=== PATIENT | female | born 1995 | race African-American/Black ===

== ENCOUNTER 2017-02-09 11:12 | Emergency (ER) | payer OTHER ==
[~2017-02-09] VITALS: Ht 157.5 cm; Wt 56.7 kg
[2017-02-09 13:41] LABS: INR 1.1
[2017-02-09 13:46] LABS: BASO # 0.1 K/mm3 (0.0-0.2); EOS % 0.7 % (0.0-3.0); LARGE UNSTAINED CELL # 0.1 K/mm3 (0.0-0.4); LARGE UNSTAINED CELL % 2.3 % (0.0-4.0); LYMPH # 2.2 K/mm3 (1.5-6.5); LYMPH % 34.7 % (24.0-44.0); MEAN CORPUSCULAR HEMOGLOBIN 18.3 pg (27.0-33.0); MEAN CORPUSCULAR HGB CONC 28.1 g/dl (32.0-36.5); MEAN CORPUSCULAR VOLUME 65.4 fl (80.0-96.0); MONO # 0.3 K/mm3 (0.0-0.8); MONO % 4.8 % (0.0-5.0); NEUTROPHILS # 3.5 K/mm3 (1.8-7.7); NEUTROPHILS % 56.5 % (36.0-66.0); PLATELET COUNT, AUTOMATED 327 k/mm3 (150-450); RED CELL DISTRIBUTION WIDTH 17.7 % (11.5-14.5); WHITE BLOOD COUNT 6.2 K/mm3 (4.0-10.0)
[2017-02-09 13:51] LABS: ALBUMIN/GLOBULIN RATIO 0.77 (1.00-1.93); ALKALINE PHOSPHATASE 87 U/L (45-117); ALT/SGPT 34 U/L (12-78); ANION GAP 6 MEQ/L (8-16); AST/SGOT 43 U/L (15-37); BILIRUBIN,DIRECT < 0.1 MG/DL (0.0-0.2); BILIRUBIN,TOTAL 0.4 MG/DL (0.2-1.0); BLOOD UREA NITROGEN 14 MG/DL (7-18); CALCIUM LEVEL 9.5 MG/DL (8.5-10.1); CARBON DIOXIDE LEVEL 29 MEQ/L (21-32); CHLORIDE LEVEL 103 MEQ/L (98-107); CREATININE FOR GFR 0.61 MG/DL (0.55-1.02); GLUCOSE, FASTING 78 MG/DL (70-105); POTASSIUM SERUM 4.3 MEQ/L (3.5-5.1); SODIUM LEVEL 138 MEQ/L (136-145); TOTAL PROTEIN 9.2 GM/DL (6.4-8.2)
[2017-02-09 14:05] LABS: ADD MORPHOLOGY? YES
[2017-02-09 14:11] LABS: ANISOCYTOSIS 1+; HYPOCHROMASIA 3+; MICROCYTOSIS 3+
[2017-02-09 14:45] VITALS: BP 117/59
== END 2017-02-09 14:57 | disposition home or self-care (01) ==
LOC: M ED 13:00
DX: K92.2 Gastrointestinal hemorrhage, unspecified (principal); F17.210 Nicotine dependence, cigarettes, uncomplicated; Z88.8 Allergy status to other drugs, medicaments and biological substances

== ENCOUNTER 2017-02-10 20:23 | Emergency (ER) | payer OTHER ==
[~2017-02-10] VITALS: Ht 157.5 cm; Wt 54.4 kg
[2017-02-10] MEDS ORDERED: GASTROGRAFIN SOLUTION 30ML (Q9963) As Ordered ONE (23:18)
[2017-02-10] MEDS ORDERED: GASTROGRAFIN SOLUTION 30ML (Q9963) PO ONE ×2 (23:30)
[2017-02-10 23:31] LABS: DIFF SLIDE NUMBER 367; MEAN CORPUSCULAR HEMOGLOBIN 18.1 pg (27.0-33.0); MEAN CORPUSCULAR HGB CONC 27.3 g/dl (32.0-36.5); MEAN CORPUSCULAR VOLUME 66.1 fl (80.0-96.0); PLATELET COUNT, AUTOMATED 282 k/mm3 (150-450); RED CELL DISTRIBUTION WIDTH 17.8 % (11.5-14.5); WHITE BLOOD COUNT 4.8 K/mm3 (4.0-10.0)
[2017-02-10 23:38] LABS: CONTROL LINE HCG INT CTR LINE PRESENT; INR 1.1
[2017-02-10 23:44] LABS: ALBUMIN 3.6 GM/DL (3.2-5.2); ALBUMIN/GLOBULIN RATIO 0.69 (1.00-1.93); ALKALINE PHOSPHATASE 84 U/L (45-117); ALT/SGPT 31 U/L (12-78); ANION GAP 6 MEQ/L (8-16); AST/SGOT 27 U/L (15-37); BILIRUBIN,DIRECT < 0.1 MG/DL (0.0-0.2); BILIRUBIN,TOTAL 0.2 MG/DL (0.2-1.0); BLOOD UREA NITROGEN 12 MG/DL (7-18); CALCIUM LEVEL 9.2 MG/DL (8.5-10.1); CARBON DIOXIDE LEVEL 26 MEQ/L (21-32); CHLORIDE LEVEL 104 MEQ/L (98-107); CREATININE FOR GFR 0.58 MG/DL (0.55-1.02); GLUCOSE, FASTING 82 MG/DL (70-105); POTASSIUM SERUM 3.8 MEQ/L (3.5-5.1); SODIUM LEVEL 136 MEQ/L (136-145); TOTAL PROTEIN 8.8 GM/DL (6.4-8.2)
[2017-02-10 23:53] LABS: BASOPHILS 1 % (0-4); EOSINOPHILS 1 % (0-5)
[2017-02-10 23:55] LABS: ANISOCYTOSIS 1+; HYPOCHROMASIA 3+; MICROCYTOSIS 3+; OVALOCYTES 1+
[2017-02-11] MEDS ORDERED: ISOVUE-370 76% 100ML VIAL (Q9967) As Ordered ONE (00:40)
[2017-02-11] MEDS ORDERED: diphenhydrAMINE INJ 50MG/ML VIAL (J1200) IV ONE (01:00)
[2017-02-11] MEDS ORDERED: ONDANSETRON 4MG/2ML VIAL (J2405) IV ONE (01:00)
[2017-02-11] MEDS ORDERED: methylPREDNISolone INJ 125 MG/2 ML VIAL (J2930) IV ONE (01:00)
--- NOTE | 2017-02-11 01:10 | REPUSA ---
CLINICAL HISTORY: Abdominal pain. TECHNIQUE: Multiple axial, sagittal and coronal CT images were obtained through the abdomen and pelvi s after administration of oral and intravenous contrast material. COMMENTS: The liver is mildly enlarged with decreased attenuation without mass or defect. There is no intra or extrahepatic biliary ductal dilatation. The spleen is normal. The gallbladder is within normal limits . The pancreas is of normal contour and attenuation characteristics. There is no evidence of adrenal mass. Both kidneys demonstrate prompt and equal nephrograms. The kidneys are normal in size, shape and conf iguration. There is no evidence of renal or ureteral mass. No renal or ureteral calculi are identifie d. There is no hydroureter or hydronephrosis. No evidence for appendicitis. There is no bowel wall thickening. No evidence for small or large jessie l obstruction. There is no evidence of abdominal ascites or lymphadenopathy. There is no evidence of intrinsic or extrinsic bladder mass. Thickened bladder. There is small amount of free fluid in the pelvis. Images of the lung bases show no evidence of pleural or parenchymal mass. There are no pleural effusi ons. The bony structures are free of lytic or blastic lesions. IMPRESSION: Thickened bladder. Underdistention versus mild cystitis. Small amount of free fluid in the pelvis. Thank you for your kind referral of this patient.
[2017-02-11 02:56] VITALS: BP 112/54
== END 2017-02-11 02:57 | disposition home or self-care (01) ==
LOC: M ED 21:25
DX: K92.2 Gastrointestinal hemorrhage, unspecified (principal); F17.210 Nicotine dependence, cigarettes, uncomplicated; Z88.8 Allergy status to other drugs, medicaments and biological substances
CPT/HCPCS: 36415; 74177; 80048; 80076; 83690; 84703; 85025; 85610; 85730; 86850; 86900; 86901; 96374; 96375; 99283; J1200; J2405; J2930; Q9963; Q9967

== ENCOUNTER → 2017-04-30 | Day surgery (SDC) | payer OTHER ==
[~2017-04-30] VITALS: Ht 160 cm; Wt 54.4 kg
[~2017-04-30] MED LIST: BUPIVACAINE HCL 0.5% 30 ML VIAL As Ordered ONE; GLYCOPYRROLATE INJ 0.2 MG/ML 2 ML VIAL As Ordered ONE; LIDOCAINE 2% INJ 100 MG/5 ML SDV (FOR ANES.) As Ordered ONE; LR 1,000 ML IV ONE; LR 1,000 ML IV SCH; MIDAZOLAM INJ 2 MG/2 ML VIAL (J2250) As Ordered ONE; NEOSTIGMINE 1MG/ML 5 ML SYRINGE (J2710) As Ordered ONE; ONDANSETRON 4MG/2ML VIAL (J2405) As Ordered ONE; ONDANSETRON 4MG/2ML VIAL (J2405) IV PRN; PERCOCET 5MG/325MG TAB As Ordered ONE; PERCOCET 5MG/325MG TAB PO ONE; PROPOFOL 200 MG/20 ML VIAL As Ordered ONE; ROCURONIUM BROMIDE 50 MG/5 ML VIAL/SYRINGE As Ordered ONE; TYLE1TAB5 PO; dexameTHASONE 4 MG/ML 1ML VIAL (J1100) As Ordered ONE; fentaNYL 100 MCG/2 ML INJECTION (J3010) As Ordered ONE
[2017-04-30 08:45] LABS: CONTROL LINE UCG INT CTR LINE PRESENT
[2017-04-30] MEDS: fentaNYL 100 MCG/2 ML INJECTION (J3010) IV PRN ×3 (10:38→11:16)
[2017-04-30 12:40] VITALS: BP 132/87
--- NOTE | 2017-05-01 08:29 | RO ---
DATE OF PROCEDURE: 04/30/2017 PREOPERATIVE DIAGNOSIS: Chronic tonsillitis. POSTOPERATIVE DIAGNOSIS: Chronic tonsillitis. PROCEDURE: Tonsillectomy. SURGEON: Louis Singh MD [employer]GE[employer]: ANESTHESIA: INDICATIONS: This is a 21-year-old with a history of recurrent tonsillitis, pharyngitis. DATE OF PROCEDURE: Satisfactory general endotracheal anesthesia was administered. The patient placed in Trendelenburg positions. Rj-Alf gag inserted. First, the right tonsil was grasped with an Allis clamp and retracted out of its muscular fossa. Using cutting cautery, incision was made on the anterior pillar 3 mm from its edge and the capsule of the tonsil was then identified. Using a combination of cautery and blunt dissection, the tonsil was dissected medially out of its muscular fossa, working superiorly down into the space between the constrictor muscle and the tonsil capsule. The tonsil was rolled medially out of its fossa, working inferiorly and preserving the posterior pillar in its entirety. Once the tonsil was suspended only at the inferior pole, coagulation current was used to amputate tissue. No significant bleeding was encountered in this dissection. The left tonsil was removed in a similar fashion. After completing surgery, 0.5% Marcaine was injected into the surgical site and the tonsil fossa. The gag was released at 3 minutes. Reinspection showed no active bleeding. Total blood loss was 15 mL. The patient was then awakened, extubated, and sent to recovery in satisfactory condition. She will be discharged home on Motrin 800 mg, Tylenol gel caps and Hycet elixir. She was given a prescription for Keflex suspension 250 mg twice a day. She will be seen in the office in 1 week.
== END | disposition home or self-care (01) ==
LOC: M SDC 07:07
PROVIDERS: ATTEND Specialist
DX: J35.01 Chronic tonsillitis (principal); R29.898 Other symptoms and signs involving the musculoskeletal system; R06.83 Snoring; Z88.6 Allergy status to analgesic agent; Z91.041 Radiographic dye allergy status; Z87.448 Personal history of other diseases of urinary system; Z72.0 Tobacco use
CPT/HCPCS: 42826; 84703; 88302; J1100; J2250; J2405; J2710; J3010

== ENCOUNTER 2017-08-02 13:51 | Emergency (ER) | payer OTHER ==
[~2017-08-02] VITALS: Ht 160 cm; Wt 54.5 kg
[2017-08-02] MEDS ORDERED: TYLE1TAB5 PO (14:40)
[2017-08-02] MEDS ORDERED: ONDANSETRON 4MG/2ML VIAL (J2405) IV ONE (15:45)
[2017-08-02] MEDS ORDERED: MORPHINE 2 MG/ML 1ML SYRINGE IV PRN (15:45)
[2017-08-02 16:40] LABS: ADD MORPHOLOGY? YES; BASO % 0.6 % (0.0-1.0); EOS # 0.1 10^3/uL (0.0-0.50); EOS % 0.8 % (0.0-3.0); IMMATURE GRANULOCYTE % 0.3 % (0-0); LYMPH # 2.5 10^3/uL (1.5-6.5); LYMPH % 34.7 % (24.0-44.0); MEAN CORPUSCULAR HEMOGLOBIN 17.7 pg (27.0-33.0); MEAN CORPUSCULAR HGB CONC 27.9 g/dl (32.0-36.5); MEAN CORPUSCULAR VOLUME 63.5 fl (80.0-96.0); MONO # 0.5 10^3/uL (0.0-0.8); MONO % 7.1 % (0.0-5.0); NEUTROPHILS # 4.1 10^3/uL (1.8-7.7); NEUTROPHILS % 56.5 % (36.0-66.0); PLATELET COUNT, AUTOMATED 258 10^3/uL (150-450); POSITIVE MORPH POS FLAG; RED CELL DISTRIBUTION WIDTH 20.3 % (11.5-14.5); WHITE BLOOD COUNT 7.2 10^3/uL (4.0-10.0)
[2017-08-02 17:08] LABS: ALBUMIN 3.9 GM/DL (3.2-5.2); ALBUMIN/GLOBULIN RATIO 0.83 (1.00-1.93); ALKALINE PHOSPHATASE 93 U/L (45-117); ALT/SGPT 19 U/L (12-78); ANION GAP 7 MEQ/L (8-16); AST/SGOT 16 U/L (15-37); BILIRUBIN,DIRECT < 0.1 MG/DL (0.0-0.2); BILIRUBIN,TOTAL 0.3 MG/DL (0.2-1.0); BLOOD UREA NITROGEN 17 MG/DL (7-18); CALCIUM LEVEL 8.9 MG/DL (8.5-10.1); CARBON DIOXIDE LEVEL 25 MEQ/L (21-32); CHLORIDE LEVEL 105 MEQ/L (98-107); CREATININE FOR GFR 0.53 MG/DL (0.55-1.02); GLUCOSE, FASTING 80 MG/DL (70-105); POTASSIUM SERUM 3.9 MEQ/L (3.5-5.1); SODIUM LEVEL 137 MEQ/L (136-145); TOTAL PROTEIN 8.6 GM/DL (6.4-8.2)
[2017-08-02 17:27] LABS: CONTROL LINE HCG INT CTR LINE PRESENT
[2017-08-02 17:28] LABS: ANISOCYTOSIS 2+; HYPOCHROMASIA 2+; MICROCYTOSIS 2+; OVALOCYTES 1+; POLYCHROMASIA 1+
--- NOTE | 2017-08-02 18:03 | REP ---
CT of the abdomen pelvis without IV or bowel contrast: Comparison is 2016. The visualized lung cardona are unremarkable. The unenhanced hepatic parenchyma, gallbladder, pancreas and spleen are unremarkable. The adrenals, kidneys and abdominal aorta are unremarkable. There is no hydronephrosis. There are no ureteral calculi. There is no bowel distension. Mesentery is unremarkable. Pelvis: The uterus and adnexa are unremarkable. The bladder and appendix are unremarkable. There is no ascites or adenopathy. Impression: Essentially negative CT study of the abdomen and pelvis. Signed by Ubaldo Salas MD 08/02/2017 05:55 P
[2017-08-02 18:20] VITALS: BP 119/68
== END 2017-08-02 18:27 | disposition home or self-care (01) ==
LOC: M ED 13:51
DX: R10.9 Unspecified abdominal pain (principal); Z72.0 Tobacco use
CPT/HCPCS: 74176; 80048; 80076; 81001; 83690; 84703; 85025; 87086; 96374; 96375; 99283; J2405

== ENCOUNTER 2017-09-19 07:28 | Emergency (ER) | payer OTHER ==
[~2017-09-19] VITALS: Ht 160 cm; Wt 54.5 kg
[~2017-09-19 07:28] MED LIST changes: -BUPIVACAINE HCL 0.5% 30 ML VIAL As Ordered ONE; -GLYCOPYRROLATE INJ 0.2 MG/ML 2 ML VIAL As Ordered ONE; -LIDOCAINE 2% INJ 100 MG/5 ML SDV (FOR ANES.) As Ordered ONE; -LR 1,000 ML IV ONE; -LR 1,000 ML IV SCH; -MIDAZOLAM INJ 2 MG/2 ML VIAL (J2250) As Ordered ONE; -NEOSTIGMINE 1MG/ML 5 ML SYRINGE (J2710) As Ordered ONE; -ONDANSETRON 4MG/2ML VIAL (J2405) As Ordered ONE; -ONDANSETRON 4MG/2ML VIAL (J2405) IV PRN; -PERCOCET 5MG/325MG TAB As Ordered ONE; -PERCOCET 5MG/325MG TAB PO ONE; -PROPOFOL 200 MG/20 ML VIAL As Ordered ONE; -ROCURONIUM BROMIDE 50 MG/5 ML VIAL/SYRINGE As Ordered ONE; -dexameTHASONE 4 MG/ML 1ML VIAL (J1100) As Ordered ONE; -fentaNYL 100 MCG/2 ML INJECTION (J3010) As Ordered ONE
[2017-09-19] MEDS ORDERED: VENTAER IN (09:07)
[2017-09-19] MEDS ORDERED: MOME50SP (09:07)
[2017-09-19] MEDS ORDERED: MUCI120T PO (09:07)
[2017-09-19 09:15] VITALS: BP 133/70
--- NOTE | 2017-09-19 18:08 | ECGEPIP ---
Stationary ECG Study [facility] - ED Test Date: 2017-09-19 Pat Name: PRAVEENA CHAND Department: Room: - Gender: F Movie Actor: vito : 1995 Requested By: NATALIIA Long PA-C Order Number: [id number] Reading MD: Félix Hussein Measurements Intervals [place] Rate: 75 P: 132 CO: 131 QRS: 149 QRSD: 88 T: 155 QT: 360 QTc: 402 Interpretive Statements SINUS RHYTHM LEFT POSTERIOR FASCICULAR BLOCK BENIGN EARLY REPOLARIZATION NO PRIORS FOR COMPARISON Electronically Signed On 09-19-2017 18:08:37 EST by Félix Hussein
== END 2017-09-19 09:16 | disposition home or self-care (01) ==
LOC: M ED 07:28
DX: J06.9 Acute upper respiratory infection, unspecified (principal); F17.210 Nicotine dependence, cigarettes, uncomplicated; Z91.041 Radiographic dye allergy status; Z88.8 Allergy status to other drugs, medicaments and biological substances

== ENCOUNTER 2017-10-08 11:34 | Emergency (ER) | payer OTHER ==
[~2017-10-08] VITALS: Ht 160 cm; Wt 54.5 kg
[2017-10-08 11:34] VITALS: BP 139/85
[~2017-10-08 11:34] MED LIST changes: +MOME50SP; +MUCI120T PO; +VENTAER IN
[2017-10-08] MEDS ORDERED: MIRA3350 PO (12:58)
[2017-10-08] MEDS ORDERED: COLA100C5 PO (12:58)
[2017-10-08] MEDS ORDERED: ANUS25SU PR (12:58)
== END 2017-10-08 13:14 | disposition home or self-care (01) ==
LOC: M ED 11:34
DX: K59.00 Constipation, unspecified (principal); K64.9 Unspecified hemorrhoids; Z88.8 Allergy status to other drugs, medicaments and biological substances; Z91.041 Radiographic dye allergy status

== ENCOUNTER 2018-05-13 08:02 | Emergency (ER) | payer OTHER ==
[2018-05-13] MEDS: KETOROLAC TROMETHAMINE 10 MG TAB PO (09:34)
== END 2018-05-13 10:05 | disposition home or self-care (01) ==
LOC: M ED 08:02
DX: S60.221A Contusion of right hand, initial encounter (principal); W23.0XXA Caught, crushed, jammed, or pinched between moving objects, initial encounter; Y92.89 Other specified places as the place of occurrence of the external cause; Z88.8 Allergy status to other drugs, medicaments and biological substances; Z91.041 Radiographic dye allergy status; F17.210 Nicotine dependence, cigarettes, uncomplicated
CPT/HCPCS: 73130

== ENCOUNTER 2018-09-13 17:23 | Emergency (ER) | payer OTHER ==
[2018-09-13] MEDS: diphenhydrAMINE INJ 50MG/ML VIAL (J1200) IV (18:40)
[2018-09-13] MEDS: KETOROLAC 30 MG/ML VIAL (J1885) IV (18:40)
[2018-09-13] MEDS: METOCLOPRAMIDE INJ 10MG/2ML VIAL (J2765) IV (18:40)
[2018-09-13 19:14] LABS: BASO % 0.1 % (0.0-1.0); HEMATOCRIT 34.1 % (36.0-47.0); HEMOGLOBIN 9.6 g/dl (12.0-15.5); IMMATURE GRANULOCYTE % 0.6 % (0-3.0); LYMPH # 2.2 10^3/uL (1.5-6.5); LYMPH % 15.2 % (24.0-44.0); MEAN CORPUSCULAR HEMOGLOBIN 18.3 pg (27.0-33.0); MEAN CORPUSCULAR HGB CONC 28.2 g/dl (32.0-36.5); MEAN CORPUSCULAR VOLUME 64.8 fl (80.0-96.0); MONO # 0.7 10^3/uL (0.0-0.8); MONO % 5.1 % (0.0-5.0); NEUTROPHILS # 11.2 10^3/uL (1.8-7.7); PLATELET COUNT, AUTOMATED 267 10^3/uL (150-450); RED BLOOD COUNT 5.26 10^6/uL (4.00-5.40); RED CELL DISTRIBUTION WIDTH 19.1 % (11.5-14.5); WHITE BLOOD COUNT 14.2 10^3/uL (4.0-10.0)
== END 2018-09-13 20:09 | disposition home or self-care (01) ==
LOC: M ED 17:23
DX: G43.909 Migraine, unspecified, not intractable, without status migrainosus (principal); F17.200 Nicotine dependence, unspecified, uncomplicated; Z91.041 Radiographic dye allergy status; Z88.8 Allergy status to other drugs, medicaments and biological substances
CPT/HCPCS: J1200

== ENCOUNTER 2018-11-06 08:20 | Emergency (ER) | payer OTHER ==
[~2018-11-06] VITALS: Ht 160 cm; Wt 63.6 kg
[~2018-11-06 08:20] MED LIST changes: +ACET30TAB PO; +ANUS25SU PR; +COLA100C5 PO; +KETO10TAB PO; +MIRA3350 PO; +REGL10TA6 PO
[2018-11-06 08:21] VITALS: BP 131/80
[2018-11-06] MEDS ORDERED: AMOX500C PO (08:51)
[2018-11-06] MEDS ORDERED: ACET650T3 PO (08:53)
[2018-11-06] MEDS ORDERED: MUCI30TA5 PO (08:53)
[2018-11-06] MEDS ORDERED: NETI1KIT (08:53)
[2018-11-06] MEDS ORDERED: PSEU30TA21 PO (08:53)
== END 2018-11-06 09:05 | disposition home or self-care (01) ==
LOC: M ED 08:20
DX: H66.92 Otitis media, unspecified, left ear (principal); J02.9 Acute pharyngitis, unspecified; Z88.8 Allergy status to other drugs, medicaments and biological substances; Z91.041 Radiographic dye allergy status; F17.210 Nicotine dependence, cigarettes, uncomplicated

== ENCOUNTER 2019-05-13 09:02 | Emergency (ER) | payer OTHER ==
[~2019-05-13] VITALS: Ht 160 cm; Wt 65.5 kg
[~2019-05-13 09:02] MED LIST changes: +ACET-716 PO; -ACET30TAB PO; +ACET650T3 PO; +AMOX500C PO; +MUCI30TA5 PO; +NETI1KIT; +PSEU30TA21 PO
[2019-05-13] MEDS ORDERED: DURE0.055 (09:07)
[2019-05-13] MEDS ORDERED: diazePAM 5 MG TAB PO ONE (09:45)
[2019-05-13] MEDS ORDERED: ACETAMINOPHEN 500 MG TAB PO ONE (09:45)
[2019-05-13] MEDS ORDERED: LIDOCAINE 5% (LIDODERM) PATCH TD ONE (09:45)
--- NOTE | 2019-05-13 10:27 | REP ---
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 Vertebral body heights, interspacing alignment are normal. The pedicles, facets and sacroiliac articulations are unremarkable. Impression: There are six lumbar segments as discussed. Otherwise, negative lumbar spine. Electronically Signed by Ubaldo Salas MD 05/13/2019 10:19 A
[2019-05-13] MEDS ORDERED: CYCL10TA PO (10:51)
[2019-05-13 10:59] VITALS: BP 110/71
[2019-05-13] MEDS ORDERED: **NOTE PATIENT COMMENT** MISC XX SCH (21:00)
== END 2019-05-13 11:04 | disposition home or self-care (01) ==
LOC: M ED 09:02
DX: S39.012A Strain of muscle, fascia and tendon of lower back, initial encounter (principal); W10.8XXA Fall (on) (from) other stairs and steps, initial encounter; Y92.89 Other specified places as the place of occurrence of the external cause; Z88.8 Allergy status to other drugs, medicaments and biological substances; Z91.041 Radiographic dye allergy status; F17.210 Nicotine dependence, cigarettes, uncomplicated

== ENCOUNTER 2019-06-13 15:44 | Emergency (ER) | payer OTHER ==
[~2019-06-13] VITALS: Ht 160 cm; Wt 70.0 kg
[~2019-06-13 15:44] MED LIST changes: +CYCL10TA PO; +DURE0.055
[2019-06-13] MEDS ORDERED: AUGM875T28 PO (17:29)
[2019-06-13] MEDS ORDERED: IBUP-1022 PO (17:29)
[2019-06-13 17:44] VITALS: BP 139/58
== END 2019-06-13 17:52 | disposition home or self-care (01) ==
LOC: M ED 15:44
DX: L02.411 Cutaneous abscess of right axilla (principal); F17.200 Nicotine dependence, unspecified, uncomplicated; Z91.041 Radiographic dye allergy status